=== PATIENT | female | born 1955 | race Caucasian/White ===

== ENCOUNTER → 2017-06-27 | Outpatient (CLI) | payer BC ==
[2015-11-07 15:02] VITALS: BP 143/78
[~2017-06-27] MED LIST: BONIVA150 MG PO; CALCIUM 1200 W/1 SGL PO; CLONAZEPAM0.5 MG PO; COLACE100 M1 PO; DECADRON 4MG TAB4 MG PO; FEMARA 2.5MG2.5 MG PO; FOSAMAX70 MG PO; LEXAPRO 10MG10 MG PO; MICARDIS40 MG PO; SIMVASTATIN40 M1 PO
== END ==
LOC: MAMMO 10:32 → RAD 14:30 → MAMMO 14:30
DX: Z12.31 Encounter for screening mammogram for malignant neoplasm of breast (principal)

== ENCOUNTER → 2017-06-27 | Outpatient (CLI) | payer BC ==
[2015-11-07 15:02] VITALS: BP 143/78
[2017-06-27 10:53] LABS: EOS # 0.2 (0.04-0.40); EOS % 2.5 % (1.0-5.0); HEMATOCRIT 47.7 % (37.0-47.0); HEMOGLOBIN 15.5 g/dL (12.5-16.0); LYMPH# 1.4 (1.50-4.00); MEAN CELL VOLUME 95 fl (78-100); MEAN CORPUSCULAR HEMOGLOBIN 31 pg (27-31); MEAN CORPUSCULAR HGB CONC 33 g/dL (33-37); MEAN PLATELET VOLUME 10.5 fl (7.4-10.4); MONO # 0.5 (0.20-0.80); NEU # 4.3 (1.40-6.50); PLATELET COUNT 271 K/mm3 (130-400); RED BLOOD COUNT 5.01 M/mm3 (4.10-5.30); RED CELL DISTRIBUTION WIDTH 13.1 % (11.5-14.5); WHITE BLOOD COUNT 6.4 K/mm3 (4.8-10.8)
[2017-06-27 11:17] LABS: ALBUMIN 4.3 g/dL (3.5-5.0); CALCIUM 9.9 mg/dL (8.4-10.2); POTASSIUM 4.4 mmol/L (3.6-5.0); TOTAL BILIRUBIN 0.6 mg/dL (0.2-1.3); TOTAL PROTEIN 7.6 g/dL (6.3-8.2)
== END ==
LOC: RAD 10:22 → LAB 10:22
PROVIDERS: Nurse Practitioner Family
DX: Z00.00 Encounter for general adult medical examination without abnormal findings (principal); E78.2 Mixed hyperlipidemia; I10 Essential (primary) hypertension; F41.1 Generalized anxiety disorder

== ENCOUNTER → 2017-12-01 | Outpatient (CLI) | payer BC ==
[2015-11-07 15:02] VITALS: BP 143/78
[~2017-12-01] MED LIST changes: +PERCOCET 325 MG1 TA2 PO
== END ==
LOC: RAD 16:58
DX: M51.37 Other intervertebral disc degeneration, lumbosacral region (principal)

== ENCOUNTER 2017-12-05 04:30 | Emergency (ER) | payer BC ==
[~2017-12-05] VITALS: Ht 157.5 cm; Wt 79.1 kg
[~2017-12-05 04:30] MED LIST changes: -PERCOCET 325 MG1 TA2 PO
[2017-12-05] MEDS ORDERED: PERCOCET 325 MG1 TA2 PO (06:08)
[2017-12-05 06:15] VITALS: BP 150/94
== END 2017-12-05 06:15 | disposition home or self-care (01) ==
LOC: ED 04:30
DX: M54.5 Low back pain (principal); M62.830 Muscle spasm of back; I10 Essential (primary) hypertension; Z85.3 Personal history of malignant neoplasm of breast; Z79.899 Other long term (current) drug therapy
CPT/HCPCS: J1885

== ENCOUNTER → 2017-12-11 | Outpatient (CLI) | payer BC ==
[2017-12-05 06:15] VITALS: BP 150/94
[~2017-12-11] MED LIST changes: +PERCOCET 325 MG1 TA2 PO
== END ==
LOC: RAD 10:19
DX: S32.010A Wedge compression fracture of first lumbar vertebra, initial encounter for closed fracture (principal); M51.26 Other intervertebral disc displacement, lumbar region; M48.8X7 Other specified spondylopathies, lumbosacral region; R60.0 Localized edema

== ENCOUNTER → 2018-02-21 | Outpatient (CLI) | payer BC | LOC: RAD 14:14 → MAMMO 14:30 → RAD 14:30 | DX: Z13.820 Encounter for screening for osteoporosis (principal); M81.0 Age-related osteoporosis without current pathological fracture ==

== ENCOUNTER 2018-03-09 14:57 | Emergency (ER) | payer BC ==
[~2018-03-09] VITALS: Wt 80.0 kg
[2018-03-09 15:54] LABS: EOS # 0.1 (0.04-0.40); EOS % 0.5 % (1.0-5.0); HEMATOCRIT 43.2 % (37.0-47.0); HEMOGLOBIN 13.8 g/dL (12.5-16.0); LYMPH# 1.5 (1.50-4.00); MEAN CELL VOLUME 97 fl (78-100); MEAN CORPUSCULAR HEMOGLOBIN 31 pg (27-31); MEAN CORPUSCULAR HGB CONC 32 g/dL (33-37); MEAN PLATELET VOLUME 10.5 fl (7.4-10.4); MONO # 1.2 (0.20-0.80); NEU # 8.2 (1.40-6.50); PLATELET COUNT 235 K/mm3 (130-400); RED BLOOD COUNT 4.46 M/mm3 (4.10-5.30); RED CELL DISTRIBUTION WIDTH 13.4 % (11.5-14.5)
[2018-03-09 16:04] LABS: PROTHROMBIN TIME 9.8 SECONDS (9.0-12.0)
[2018-03-09 16:17] LABS: CALCIUM 9.8 mg/dL (8.4-10.2); TOTAL BILIRUBIN 0.6 mg/dL (0.2-1.3); TOTAL PROTEIN 7.2 g/dL (6.3-8.2)
[2018-03-09 16:28] LABS: ALBUMIN 4.2 g/dL (3.5-5.0)
[2018-03-09] MEDS ORDERED: FLAGYL500 M1 PO (17:36)
[2018-03-09] MEDS ORDERED: ZOFRAN ODT4 MG PO (17:36)
[2018-03-09] MEDS ORDERED: CIPRO500 M1 PO (17:36)
[2018-03-09 18:15] VITALS: BP 128/77
[2018-03-09 18:19] LABS: URINE APPEARANCE CLEAR; URINE BILIRUBIN NEGATIVE (NEGATIVE); URINE BLOOD 50 ery/uL (NEGATIVE); URINE COLOR YELLOW; URINE GLUCOSE NEGATIVE (NEGATIVE); URINE KETONE NEGATIVE (NEGATIVE); URINE LEUKOCYTE ESTERASE NEGATIVE (NEGATIVE); URINE NITRATE NEGATIVE (NEGATIVE); URINE PROTEIN(semi-quant) NEGATIVE (NEGATIVE); URINE UROBILINOGEN NORMAL (NORMAL); URINE WBC 0-1 /hpf (0-3)
[2018-03-09] MEDS ORDERED: ESCITALOPRAM20 MG PO (18:34)
[2018-03-09] MEDS ORDERED: METOPROLOL SUC100 M1 PO (18:35)
[2018-03-09] MEDS ORDERED: HYDROCHLOROTHIA1 T14 PO (18:35)
== END 2018-03-09 17:58 | disposition home or self-care (01) ==
LOC: ED 14:57
PROVIDERS: Physician Assistant
DX: K57.32 Diverticulitis of large intestine without perforation or abscess without bleeding (principal); G43.909 Migraine, unspecified, not intractable, without status migrainosus; I10 Essential (primary) hypertension; Z85.3 Personal history of malignant neoplasm of breast; Z79.899 Other long term (current) drug therapy; Z88.5 Allergy status to narcotic agent
CPT/HCPCS: J1885; J2405; J3010; J7030; Q9967

== ENCOUNTER → 2018-07-09 | Outpatient (CLI) | payer BC ==
[~2018-07-09] MED LIST changes: +CIPRO500 M1 PO; +ESCITALOPRAM20 MG PO; +FLAGYL500 M1 PO; +HYDROCHLOROTHIA1 T14 PO; +METOPROLOL SUC100 M1 PO; +ZOFRAN ODT4 MG PO
[2018-07-09 09:18] LABS: EOS # 0.2 (0.04-0.40); EOS % 3.9 % (1.0-5.0); HEMATOCRIT 45.8 % (37.0-47.0); HEMOGLOBIN 14.8 g/dL (12.5-16.0); LYMPH# 1.3 (1.50-4.00); MEAN CELL VOLUME 94 fl (78-100); MEAN CORPUSCULAR HEMOGLOBIN 31 pg (27-31); MEAN CORPUSCULAR HGB CONC 32 g/dL (33-37); MEAN PLATELET VOLUME 10.3 fl (7.4-10.4); MONO # 0.4 (0.20-0.80); NEU # 2.3 (1.40-6.50); PLATELET COUNT 246 K/mm3 (130-400); RED BLOOD COUNT 4.86 M/mm3 (4.10-5.30); RED CELL DISTRIBUTION WIDTH 12.9 % (11.5-14.5); WHITE BLOOD COUNT 4.2 K/mm3 (4.8-10.8)
[2018-07-09 09:47] LABS: ALBUMIN 4.2 g/dL (3.5-5.0); CALCIUM 9.5 mg/dL (8.4-10.2); TOTAL BILIRUBIN 0.6 mg/dL (0.2-1.3); TOTAL PROTEIN 7.3 g/dL (6.3-8.2)
== END ==
LOC: LAB 09:06
PROVIDERS: Physician Assistant
DX: Z00.00 Encounter for general adult medical examination without abnormal findings (principal); Z12.39 Encounter for other screening for malignant neoplasm of breast; C50.919 Malignant neoplasm of unspecified site of unspecified female breast; I10 Essential (primary) hypertension; M81.0 Age-related osteoporosis without current pathological fracture; G25.81 Restless legs syndrome; K22.4 Dyskinesia of esophagus; R13.10 Dysphagia, unspecified

== ENCOUNTER → 2018-07-17 | Outpatient (CLI) | payer BC | LOC: MAMMO 07-10 16:00 | DX: Z12.31 Encounter for screening mammogram for malignant neoplasm of breast (principal) ==

== ENCOUNTER → 2018-08-16 | Outpatient (CLI) | payer BC ==
[2018-08-19 07:27] LABS: ALBUMIN 4.2 g/dL (3.5-5.0); CALCIUM 10.1 mg/dL (8.4-10.2); TOTAL BILIRUBIN 0.4 mg/dL (0.2-1.3); TOTAL PROTEIN 7.6 g/dL (6.3-8.2)
[2018-08-19 08:17] LABS: HEMATOCRIT 45.6 % (37.0-47.0); HEMOGLOBIN 14.8 g/dL (12.5-16.0); MEAN PLATELET VOLUME 11.4 fl (7.4-10.4); RED BLOOD COUNT 4.87 M/mm3 (4.10-5.30); RED CELL DISTRIBUTION WIDTH 13.1 % (11.5-14.5); WHITE BLOOD COUNT 5.6 K/mm3 (4.8-10.8)
== END ==
LOC: AMSURD 12:04
PROVIDERS: Nurse Practitioner
DX: G43.909 Migraine, unspecified, not intractable, without status migrainosus (principal); R11.0 Nausea
CPT/HCPCS: J1200; J1885; J2060; J2550; J7030

== ENCOUNTER → 2019-08-06 | Outpatient (CLI) | payer BC ==
[2019-01-22 16:06] VITALS: BP 112/54
[~2019-08-06] MED LIST changes: +PRILOSEC 20MG20 MG PO
== END ==
LOC: MAMMO 11:09
DX: Z12.31 Encounter for screening mammogram for malignant neoplasm of breast (principal)

== ENCOUNTER 2020-05-16 13:56 | Emergency (ER) | payer MEDICARE ==
[~2020-05-16] VITALS: Ht 154.9 cm; Wt 78.2 kg
[2020-05-16] MEDS ORDERED: MIRAPEX0.125 M1 PO (14:12)
[2020-05-16 15:02] LABS: EOS # 0.2 (0.04-0.40); EOS % 3.6 % (1.0-5.0); HEMOGLOBIN 14.8 g/dL (12.5-16.0); LYMPH# 1.6 (1.50-4.00); MEAN CELL VOLUME 95 fl (78-100); MEAN CORPUSCULAR HEMOGLOBIN 31 pg (27-31); MEAN CORPUSCULAR HGB CONC 32 g/dL (33-37); MEAN PLATELET VOLUME 9.8 fl (7.4-10.4); MONO # 0.6 (0.20-0.80); NEU # 3.3 (1.40-6.50); PLATELET COUNT 260 K/mm3 (130-400); RED BLOOD COUNT 4.85 M/mm3 (4.10-5.30); RED CELL DISTRIBUTION WIDTH 12.8 % (11.5-14.5); WHITE BLOOD COUNT 5.8 K/mm3 (4.8-10.8)
[2020-05-16 15:09] LABS: ALBUMIN 4.2 g/dL (3.4-4.8); POTASSIUM 4.2 mmol/L (3.5-5.1)
[2020-05-16 15:10] LABS: CALCIUM 10.1 mg/dL (8.3-10.5)
[2020-05-16 15:12] LABS: TOTAL PROTEIN 7.2 g/dL (6.2-8.1)
[2020-05-16 15:13] LABS: TOTAL BILIRUBIN 0.3 mg/dL (0.2-1.2)
[2020-05-16 16:45] VITALS: BP 138/85
== END 2020-05-16 16:50 | disposition home or self-care (01) ==
LOC: ED 13:56
PROVIDERS: Family Medicine
DX: R07.1 Chest pain on breathing (principal); I10 Essential (primary) hypertension; E78.5 Hyperlipidemia, unspecified; F41.9 Anxiety disorder, unspecified; Z90.49 Acquired absence of other specified parts of digestive tract; Z88.6 Allergy status to analgesic agent
CPT/HCPCS: J1885

== ENCOUNTER → 2020-09-11 | Outpatient (CLI) | payer MEDICARE ==
[~2020-09-11] MED LIST changes: +CALCIUM 600 PLU1 TAB PO; +HYDROCHLOROTH12.5 M1 PO; -HYDROCHLOROTHIA1 T14 PO; +LISINOPRIL10 MG PO; +MIRAPEX0.125 M1 PO; +MIRAPEX0.5 MG PO; +PANTOPRAZOLE SO40 MG PO; +VITAMIN D325 MC2 PO
[2020-09-11 12:15] LABS: EOS # 0.2 (0.04-0.40); EOS % 4.2 % (1.0-5.0); HEMOGLOBIN 14.9 g/dL (12.5-16.0); LYMPH# 1.1 (1.50-4.00); MEAN CELL VOLUME 96 fl (78-100); MEAN CORPUSCULAR HEMOGLOBIN 30 pg (27-31); MEAN CORPUSCULAR HGB CONC 32 g/dL (33-37); MEAN PLATELET VOLUME 10.3 fl (7.4-10.4); MONO # 0.5 (0.20-0.80); NEU # 3.4 (1.40-6.50); PLATELET COUNT 263 K/mm3 (130-400); RED BLOOD COUNT 4.92 M/mm3 (4.10-5.30); RED CELL DISTRIBUTION WIDTH 13.2 % (11.5-14.5); WHITE BLOOD COUNT 5.3 K/mm3 (4.8-10.8)
[2020-09-11 12:17] LABS: ALBUMIN 4.3 g/dL (3.4-4.8); POTASSIUM 4.2 mmol/L (3.5-5.1)
[2020-09-11 12:18] LABS: CALCIUM 9.6 mg/dL (8.3-10.5)
[2020-09-11 12:19] LABS: TOTAL PROTEIN 7.3 g/dL (6.2-8.1)
[2020-09-11 12:21] LABS: TOTAL BILIRUBIN 0.4 mg/dL (0.2-1.2)
== END ==
LOC: RAD 11:36
PROVIDERS: Physician Assistant
DX: M19.011 Primary osteoarthritis, right shoulder (principal); M48.061 Spinal stenosis, lumbar region without neurogenic claudication; M48.07 Spinal stenosis, lumbosacral region; Z98.1 Arthrodesis status

== ENCOUNTER → 2021-02-08 | Outpatient (CLI) | payer MEDICARE | LOC: MAMMO 07:16 | DX: N63.12 Unspecified lump in the right breast, upper inner quadrant (principal); Z85.3 Personal history of malignant neoplasm of breast ==

== ENCOUNTER 2021-03-23 15:41 | Emergency (ER) | payer MEDICARE ==
[~2021-03-23] VITALS: Ht 154.9 cm; Wt 80.9 kg
[~2021-03-23 15:41] MED LIST changes: -CALCIUM 600 PLU1 TAB PO; -HYDROCHLOROTH12.5 M1 PO; -MIRAPEX0.125 M1 PO; -PANTOPRAZOLE SO40 MG PO; -VITAMIN D325 MC2 PO
[2021-03-23] MEDS ORDERED: CALCIUM 600 PLU1 TAB PO (17:26)
[2021-03-23] MEDS ORDERED: VITAMIN D325 MC2 PO (17:29)
[2021-03-23] MEDS ORDERED: HYDROCHLOROTH12.5 M1 PO (17:30)
[2021-03-23] MEDS ORDERED: PANTOPRAZOLE SO40 MG PO (17:31)
[2021-03-23 18:09] VITALS: BP 150/87
== END 2021-03-23 18:10 | disposition home or self-care (01) ==
LOC: ED 15:41
DX: S39.011A Strain of muscle, fascia and tendon of abdomen, initial encounter (principal); I10 Essential (primary) hypertension; Z79.899 Other long term (current) drug therapy; X50.9XXA Other and unspecified overexertion or strenuous movements or postures, initial encounter
CPT/HCPCS: J1885

== ENCOUNTER 2021-05-03 21:40 | Emergency (ER) | payer MEDICARE ==
[~2021-05-03] VITALS: Ht 154.9 cm; Wt 81.8 kg
[~2021-05-03 21:40] MED LIST changes: +CALCIUM 600 PLU1 TAB PO; +HYDROCHLOROTH12.5 M1 PO; +PANTOPRAZOLE SO40 MG PO; +VITAMIN D325 MC2 PO
[2021-05-03 21:48] VITALS: BP 152/97
[2021-05-03] MEDS ORDERED: MIRAPEX0.125 M1 PO (21:57)
== END 2021-05-03 22:11 | disposition left against medical advice (07) ==
LOC: ED 21:40
DX: R07.89 Other chest pain (principal); I10 Essential (primary) hypertension; Z79.899 Other long term (current) drug therapy

== ENCOUNTER → 2021-06-30 | Outpatient (CLI) | payer MEDICARE ==
[~2021-06-30] MED LIST changes: +MIRAPEX0.125 M1 PO
[2021-06-30 12:42] LABS: BASO # 0.04 K/mm3 (0.02-0.10); EOS # 0.18 K/mm3 (0.04-0.40); EOS % 2.6 % (1.0-5.0); HEMATOCRIT 45.7 % (37.0-47.0); HEMOGLOBIN 14.5 g/dL (12.5-16.0); MEAN CELL VOLUME 97 fl (78-100); MEAN CORPUSCULAR HEMOGLOBIN 31 pg (27-31); MEAN CORPUSCULAR HGB CONC 32 g/dL (33-37); MEAN PLATELET VOLUME 9.7 fl (7.4-10.4); NEU # 4.79 K/mm3 (1.40-6.50); PLATELET COUNT 248 K/mm3 (130-400); RED BLOOD COUNT 4.73 M/mm3 (4.10-5.30); RED CELL DISTRIBUTION WIDTH 12.9 % (11.5-14.5); WHITE BLOOD COUNT 6.8 K/mm3 (4.8-10.8)
[2021-06-30 12:51] LABS: ALBUMIN 4.3 g/dL (3.4-4.8)
[2021-06-30 12:52] LABS: POTASSIUM 4.3 mmol/L (3.5-5.1)
[2021-06-30 12:53] LABS: CALCIUM 10.1 mg/dL (8.3-10.5)
[2021-06-30 12:54] LABS: TOTAL PROTEIN 7.5 g/dL (6.2-8.1)
[2021-06-30 12:56] LABS: TOTAL BILIRUBIN 0.4 mg/dL (0.2-1.2)
== END ==
LOC: LAB 12:23
PROVIDERS: Physician Assistant
DX: R42 Dizziness and giddiness (principal)

== ENCOUNTER → 2021-09-23 | Day surgery (SDC) | payer MEDICARE | LOC: MSO 08:04 | DX: K21.9 Gastro-esophageal reflux disease without esophagitis (principal); K22.2 Esophageal obstruction; K64.8 Other hemorrhoids; D12.3 Benign neoplasm of transverse colon; K57.30 Diverticulosis of large intestine without perforation or abscess without bleeding; Z79.899 Other long term (current) drug therapy; Z87.19 Personal history of other diseases of the digestive system; Z80.0 Family history of malignant neoplasm of digestive organs | CPT/HCPCS: 00813; C1769; J2704; J7120 ==

== ENCOUNTER → 2021-09-24 | Outpatient (CLI) | payer MEDICARE ==
[2021-09-24 11:22] LABS: BASO # 0.03 K/mm3 (0.02-0.10); EOS # 0.13 K/mm3 (0.04-0.40); EOS % 2.8 % (1.0-5.0); HEMATOCRIT 45.2 % (37.0-47.0); HEMOGLOBIN 14.5 g/dL (12.5-16.0); LYMPH# 1.05 K/mm3 (1.50-4.00); MEAN CELL VOLUME 96 fl (78-100); MEAN CORPUSCULAR HEMOGLOBIN 31 pg (27-31); MEAN CORPUSCULAR HGB CONC 32 g/dL (33-37); MEAN PLATELET VOLUME 9.8 fl (7.4-10.4); MONO # 0.36 K/mm3 (0.20-0.80); NEU # 3.07 K/mm3 (1.40-6.50); PLATELET COUNT 231 K/mm3 (130-400); RED CELL DISTRIBUTION WIDTH 13.1 % (11.5-14.5); WHITE BLOOD COUNT 4.7 K/mm3 (4.8-10.8)
[2021-09-24 12:52] LABS: ALBUMIN 4.2 g/dL (3.4-4.8); POTASSIUM 4.6 mmol/L (3.5-5.1)
[2021-09-24 12:53] LABS: CALCIUM 9.8 mg/dL (8.3-10.5)
[2021-09-24 12:55] LABS: TOTAL PROTEIN 7.2 g/dL (6.2-8.1)
[2021-09-24 12:57] LABS: TOTAL BILIRUBIN 0.6 mg/dL (0.2-1.2)
== END ==
LOC: RAD 11:01
PROVIDERS: Physician Assistant
DX: M25.511 Pain in right shoulder (principal); G89.29 Other chronic pain

== ENCOUNTER 2021-12-10 10:00 | Outpatient (RCR) | payer MEDICARE ==
[2021-12-16] MEDS ORDERED: LISINOPRIL20 MG PO (13:08)
[2021-12-16] MEDS ORDERED: ZOFRAN ODT4 MG PO (14:31)
[2021-12-16] MEDS ORDERED: PHENERGAN 25 TA25 MG PO (15:00)
== END 2021-12-16 | disposition home or self-care (01) ==
LOC: PT
DX: M25.511 Pain in right shoulder (principal)

== ENCOUNTER 2021-12-16 12:06 | Emergency (ER) | payer MEDICARE ==
[~2021-12-16 12:06] MED LIST changes: -LISINOPRIL20 MG PO; -PHENERGAN 25 TA25 MG PO
[2021-12-16 12:51] LABS: BASO # 0.02 K/mm3 (0.02-0.10); EOS # 0.08 K/mm3 (0.04-0.40); EOS % 1.1 % (1.0-5.0); HEMATOCRIT 42.3 % (37.0-47.0); HEMOGLOBIN 13.8 g/dL (12.5-16.0); LYMPH# 0.85 K/mm3 (1.50-4.00); MEAN CELL VOLUME 96 fl (78-100); MEAN CORPUSCULAR HEMOGLOBIN 31 pg (27-31); MEAN CORPUSCULAR HGB CONC 33 g/dL (33-37); MEAN PLATELET VOLUME 10.2 fl (7.4-10.4); MONO # 0.52 K/mm3 (0.20-0.80); NEU # 5.71 K/mm3 (1.40-6.50); PLATELET COUNT 199 K/mm3 (130-400); RED BLOOD COUNT 4.42 M/mm3 (4.10-5.30); RED CELL DISTRIBUTION WIDTH 12.9 % (11.5-14.5); WHITE BLOOD COUNT 7.2 K/mm3 (4.8-10.8)
[2021-12-16 12:59] LABS: POTASSIUM 3.4 mmol/L (3.5-5.1)
[2021-12-16 13:00] LABS: ALBUMIN 4.1 g/dL (3.4-4.8); SODIUM 141 mmol/L (136-145)
[2021-12-16 13:01] LABS: CALCIUM 9.5 mg/dL (8.3-10.5)
[2021-12-16 13:03] LABS: GLUCOSE 114 mg/dL (65-105); TOTAL PROTEIN 6.9 g/dL (6.2-8.1)
[2021-12-16 13:04] LABS: CARBON DIOXIDE 26 mmol/L (23-31); TOTAL BILIRUBIN 0.6 mg/dL (0.2-1.2)
[2021-12-16 13:07] LABS: AST-SGOT 19 U/L (5-34)
[2021-12-16] MEDS ORDERED: LISINOPRIL20 MG PO (13:08)
[2021-12-16 13:10] LABS: ALT/SGPT 17 U/L (0-55)
[2021-12-16 13:12] LABS: LIPASE 29 U/L (8-78)
[2021-12-16 13:20] LABS: TROPONIN-I < 0.030 ng/mL (<0.030)
[2021-12-16] MEDS ORDERED: ZOFRAN ODT4 MG PO (14:31)
[2021-12-16] MEDS ORDERED: PHENERGAN 25 TA25 MG PO (15:00)
[2021-12-16 15:14] VITALS: BP 133/73
[2021-12-16 16:26] LABS: URINE APPEARANCE CLEAR; URINE COLOR YELLOW; URINE PROTEIN(semi-quant) TRACE (NEGATIVE)
[2021-12-16 16:27] LABS: URINE BILIRUBIN NEGATIVE (NEGATIVE); URINE BLOOD 50 ery/uL (NEGATIVE); URINE GLUCOSE NEGATIVE (NEGATIVE); URINE KETONE NEGATIVE (NEGATIVE); URINE LEUKOCYTE ESTERASE NEGATIVE (NEGATIVE); URINE MUCUS PRESENT (NOT PRESENT); URINE NITRATE NEGATIVE (NEGATIVE); URINE UROBILINOGEN NORMAL (NORMAL); URINE WBC 0-1 /hpf (0-3)
== END 2021-12-16 15:12 | disposition home or self-care (01) ==
LOC: ED 12:06
PROVIDERS: Nurse Practitioner
DX: K52.9 Noninfective gastroenteritis and colitis, unspecified (principal); Z90.49 Acquired absence of other specified parts of digestive tract; Z28.310 Unvaccinated for COVID-19
CPT/HCPCS: J2405; J2550; J3010; J7030; Q9967

== ENCOUNTER → 2021-12-16 | Outpatient (CLI) | payer MEDICARE ==
[~2021-12-16] MED LIST changes: +LISINOPRIL20 MG PO; +PHENERGAN 25 TA25 MG PO
== END ==
LOC: LAB 07:30
DX: Z20.822 Contact with and (suspected) exposure to COVID-19 (principal)

== ENCOUNTER 2021-12-17 13:33 | Outpatient (RCR) | payer MEDICARE ==
[~2021-12-17 13:33] MED LIST changes: +LISINOPRIL20 MG PO; +PHENERGAN 25 TA25 MG PO
== END 2022-01-16 | disposition home or self-care (01) ==
LOC: PT
DX: M25.511 Pain in right shoulder (principal)

== ENCOUNTER → 2022-02-16 | Outpatient (CLI) | payer MEDICARE | LOC: MAMMO 10:06 | DX: Z12.31 Encounter for screening mammogram for malignant neoplasm of breast (principal) ==

== ENCOUNTER → 2022-09-01 | Outpatient (CLI) | payer MEDICARE ==
[2022-09-01 17:15] LABS: BASO # 0.05 K/mm3 (0.02-0.10); EOS # 0.28 K/mm3 (0.04-0.40); EOS % 4.6 % (1.0-5.0); HEMATOCRIT 42.4 % (37.0-47.0); HEMOGLOBIN 13.6 g/dL (12.5-16.0); LYMPH# 1.87 K/mm3 (1.50-4.00); MEAN CELL VOLUME 96 fl (78-100); MEAN CORPUSCULAR HEMOGLOBIN 31 pg (27-31); MEAN CORPUSCULAR HGB CONC 32 g/dL (33-37); MEAN PLATELET VOLUME 9.3 fl (7.4-10.4); MONO # 0.69 K/mm3 (0.20-0.80); NEU # 3.25 K/mm3 (1.40-6.50); PLATELET COUNT 252 K/mm3 (130-400); RED BLOOD COUNT 4.42 M/mm3 (4.10-5.30); RED CELL DISTRIBUTION WIDTH 12.6 % (11.5-14.5); WHITE BLOOD COUNT 6.2 K/mm3 (4.8-10.8)
[2022-09-01 17:26] LABS: ALBUMIN 4.2 g/dL (3.4-4.8)
[2022-09-01 17:27] LABS: POTASSIUM 4.1 mmol/L (3.5-5.1)
[2022-09-01 17:28] LABS: CALCIUM 9.8 mg/dL (8.3-10.5)
[2022-09-01 17:29] LABS: TOTAL PROTEIN 7.1 g/dL (6.2-8.1)
[2022-09-01 17:31] LABS: TOTAL BILIRUBIN 0.3 mg/dL (0.2-1.2)
[2022-09-01 17:33] LABS: D-DIMER 0.31 mg/L FEU (0.15-0.50)
== END ==
LOC: LAB 17:05
PROVIDERS: Nurse Practitioner
DX: R22.43 Localized swelling, mass and lump, lower limb, bilateral (principal)

== ENCOUNTER 2023-02-24 18:40 | Emergency (ER) | payer MEDICARE ==
[~2023-02-24] VITALS: Ht 157.5 cm; Wt 82.2 kg
[~2023-02-24 18:40] MED LIST changes: +CARVEDILOL25 MG PO; +GABAPENTIN100 MG PO; +LOSARTAN POTAS100 MG PO; +PREDNISONE20 M1 PO; +ROPINIROLE HYDRO2 MG PO; +TRAMADOL 50 MG TAB PO; +VALACYCLOVIR1 GM PO
[2023-02-24] MEDS ORDERED: CLONIDINE HYDR0.1 MG PO (19:12)
[2023-02-24 19:26] LABS: POTASSIUM 3.5 mmol/L (3.5-5.1); SODIUM 143 mmol/L (136-145)
[2023-02-24 19:27] LABS: CALCIUM 9.4 mg/dL (8.3-10.5); GLUCOSE 115 mg/dL (65-105)
[2023-02-24 19:29] LABS: CARBON DIOXIDE 26 mmol/L (23-31)
[2023-02-24 19:40] LABS: TROPONIN-I < 0.030 ng/mL (<0.030)
[2023-02-24 20:55] VITALS: BP 145/80
== END 2023-02-24 21:05 | disposition home or self-care (01) ==
LOC: ED 18:40
PROVIDERS: Family Medicine
DX: I10 Essential (primary) hypertension (principal); F41.9 Anxiety disorder, unspecified

== ENCOUNTER 2023-04-23 10:37 | Emergency (ER) | payer MEDICARE ==
[~2023-04-23] VITALS: Ht 154.9 cm; Wt 78.2 kg
[~2023-04-23 10:37] MED LIST changes: +CANDICIDAL CAP1 EACH PO; +CLONIDINE HYDR0.1 MG PO; +FISH OIL 1,0001 EAC1 PO; +KETOROLAC10 MG PO; +VITAMIN K100 MC1 PO
[2023-04-23] MEDS ORDERED: NEURONTIN300 MG/CAP (10:46)
[2023-04-23] MEDS ORDERED: ROPINIROLE HCL1 MG PO (10:46)
[2023-04-23 11:40] VITALS: BP 140/90
== END 2023-04-23 11:40 | disposition home or self-care (01) ==
LOC: ED 10:37
DX: I10 Essential (primary) hypertension (principal); F41.9 Anxiety disorder, unspecified; J06.9 Acute upper respiratory infection, unspecified; E66.9 Obesity, unspecified; Z68.32 Body mass index [BMI] 32.0-32.9, adult

== ENCOUNTER → 2023-06-15 | Outpatient (CLI) | payer MEDICARE ==
[~2023-06-15] MED LIST changes: +NEURONTIN300 MG/CAP; +ROPINIROLE HCL1 MG PO
[2023-06-15 12:55] LABS: BASO # 0.01 K/mm3 (0.02-0.10); EOS # 0.13 K/mm3 (0.04-0.40); EOS % 2.1 % (1.0-5.0); HEMATOCRIT 41.7 % (37.0-47.0); HEMOGLOBIN 13.8 g/dL (12.5-16.0); LYMPH# 1.15 K/mm3 (1.50-4.00); MEAN CELL VOLUME 93 fl (78-100); MEAN CORPUSCULAR HEMOGLOBIN 31 pg (27-31); MEAN CORPUSCULAR HGB CONC 33 g/dL (33-37); MEAN PLATELET VOLUME 10.1 fl (7.4-10.4); MONO # 0.48 K/mm3 (0.20-0.80); NEU # 4.39 K/mm3 (1.40-6.50); PLATELET COUNT 256 K/mm3 (130-400); RED BLOOD COUNT 4.47 M/mm3 (4.10-5.30); RED CELL DISTRIBUTION WIDTH 12.8 % (11.5-14.5); WHITE BLOOD COUNT 6.2 K/mm3 (4.8-10.8)
[2023-06-15 13:06] LABS: ALBUMIN 4.4 g/dL (3.4-4.8)
[2023-06-15 13:09] LABS: TOTAL PROTEIN 7.6 g/dL (6.2-8.1)
[2023-06-15 13:11] LABS: TOTAL BILIRUBIN 0.6 mg/dL (0.2-1.2)
== END ==
LOC: LAB 12:26
PROVIDERS: Nurse Practitioner Family
DX: M79.89 Other specified soft tissue disorders (principal)

== ENCOUNTER → 2023-06-27 | Outpatient (CLI) | payer MEDICARE ==
[2023-06-27 13:56] LABS: ALBUMIN 4.5 g/dL (3.4-4.8)
[2023-06-27 13:58] LABS: CALCIUM 9.9 mg/dL (8.3-10.5)
[2023-06-27 13:59] LABS: TOTAL PROTEIN 7.5 g/dL (6.2-8.1)
[2023-06-27 14:01] LABS: TOTAL BILIRUBIN 0.7 mg/dL (0.2-1.2)
== END ==
LOC: LAB 13:28
PROVIDERS: Physician Assistant
DX: I50.9 Heart failure, unspecified (principal); R60.0 Localized edema

== ENCOUNTER → 2023-07-04 | Outpatient (CLI) | payer MEDICARE ==
[2023-07-04 10:20] LABS: ALBUMIN 4.3 g/dL (3.4-4.8)
[2023-07-04 10:21] LABS: CALCIUM 9.7 mg/dL (8.3-10.5)
[2023-07-04 10:22] LABS: TOTAL PROTEIN 7.1 g/dL (6.2-8.1)
[2023-07-04 10:24] LABS: TOTAL BILIRUBIN 0.7 mg/dL (0.2-1.2)
== END ==
LOC: LAB 09:58
PROVIDERS: Physician Assistant
DX: R60.0 Localized edema (principal)

== ENCOUNTER → 2023-07-12 | Outpatient (CLI) | payer MEDICARE ==
[2023-07-12 08:48] LABS: MAGNESIUM 1.92 mg/dL (1.60-2.60)
[2023-07-12 17:28] LABS: FOLATE (FOLIC ACID) 14.3 ng/mL (2.0-20.0)
== END ==
LOC: LAB 08:13
PROVIDERS: Nurse Practitioner
DX: M81.0 Age-related osteoporosis without current pathological fracture (principal); G25.81 Restless legs syndrome; D64.9 Anemia, unspecified; R20.2 Paresthesia of skin

== ENCOUNTER → 2023-09-09 | Outpatient (CLI) | payer MEDICARE | LOC: RAD 17:02 | DX: M79.671 Pain in right foot (principal) ==

== ENCOUNTER → 2023-09-27 | Outpatient (CLI) | payer MEDICARE ==
[2023-09-27 14:33] LABS: BASO # 0.04 K/mm3 (0.02-0.10); EOS # 0.23 K/mm3 (0.04-0.40); EOS % 3.8 % (1.0-5.0); HEMATOCRIT 42.9 % (37.0-47.0); HEMOGLOBIN 13.8 g/dL (12.5-16.0); LYMPH# 1.72 K/mm3 (1.50-4.00); MEAN CELL VOLUME 95 fl (78-100); MEAN CORPUSCULAR HEMOGLOBIN 30 pg (27-31); MEAN CORPUSCULAR HGB CONC 32 g/dL (33-37); MEAN PLATELET VOLUME 10.1 fl (7.4-10.4); MONO # 0.47 K/mm3 (0.20-0.80); NEU # 3.64 K/mm3 (1.40-6.50); PLATELET COUNT 235 K/mm3 (130-400); RED BLOOD COUNT 4.54 M/mm3 (4.10-5.30); RED CELL DISTRIBUTION WIDTH 12.8 % (11.5-14.5); WHITE BLOOD COUNT 6.1 K/mm3 (4.8-10.8)
[2023-09-27 14:41] LABS: ALBUMIN 4.6 g/dL (3.4-4.8)
[2023-09-27 14:42] LABS: CALCIUM 10.8 mg/dL (8.3-10.5)
[2023-09-27 14:44] LABS: TOTAL PROTEIN 7.3 g/dL (6.2-8.1)
[2023-09-27 14:46] LABS: TOTAL BILIRUBIN 0.5 mg/dL (0.2-1.2)
[2023-09-28 17:11] LABS: ANA SCREEN with REFLEX Negative (Negative)
== END ==
LOC: LAB 14:08
PROVIDERS: Physician Assistant
DX: Z13.29 Encounter for screening for other suspected endocrine disorder (principal); E78.5 Hyperlipidemia, unspecified; R73.9 Hyperglycemia, unspecified; E79.0 Hyperuricemia without signs of inflammatory arthritis and tophaceous disease; M25.50 Pain in unspecified joint

== ENCOUNTER 2023-10-08 12:37 | Emergency (ER) | payer MEDICARE ==
[~2023-10-08] VITALS: Ht 154.9 cm; Wt 81.8 kg
[~2023-10-08 12:37] MED LIST changes: +ATORVASTATIN CA20 MG PO; +CYCLOBENZAPRINE10 M1 PO; +ESCITALOPRAM5 MG PO; +INDOMETHACIN50 M2 PO; +POTASSIUM CHLO10 ME6 PO; +ROXICODONE 55 MG/TAB PO; +TORSEMIDE10 M1 PO
[2023-10-08 13:18] LABS: BASO # 0.03 K/mm3 (0.02-0.10); EOS # 0.25 K/mm3 (0.04-0.40); EOS % 5.2 % (1.0-5.0); HEMATOCRIT 39.4 % (37.0-47.0); LYMPH# 1.05 K/mm3 (1.50-4.00); MEAN CELL VOLUME 95 fl (78-100); MEAN CORPUSCULAR HEMOGLOBIN 31 pg (27-31); MEAN CORPUSCULAR HGB CONC 33 g/dL (33-37); MEAN PLATELET VOLUME 10.2 fl (7.4-10.4); NEU # 2.94 K/mm3 (1.40-6.50); PLATELET COUNT 211 K/mm3 (130-400); RED BLOOD COUNT 4.17 M/mm3 (4.10-5.30); RED CELL DISTRIBUTION WIDTH 12.9 % (11.5-14.5); WHITE BLOOD COUNT 4.8 K/mm3 (4.8-10.8)
[2023-10-08 13:26] LABS: ALBUMIN 4.1 g/dL (3.4-4.8)
[2023-10-08 13:28] LABS: CALCIUM 9.4 mg/dL (8.3-10.5)
[2023-10-08 13:29] LABS: TOTAL PROTEIN 6.7 g/dL (6.2-8.1)
[2023-10-08 13:31] LABS: TOTAL BILIRUBIN 0.4 mg/dL (0.2-1.2)
[2023-10-08] MEDS ORDERED: hydrALAZINE 20 MG/ML 1 ML VIAL IV ONE (14:00)
[2023-10-08 14:03] LABS: URINE APPEARANCE CLEAR (CLEAR); URINE BILIRUBIN NEGATIVE (NEGATIVE); URINE BLOOD NEGATIVE (NEGATIVE); URINE COLOR YELLOW (YELLOW); URINE GLUCOSE NEGATIVE (NEGATIVE); URINE KETONE NEGATIVE (NEGATIVE); URINE LEUKOCYTE ESTERASE TRACE (NEGATIVE); URINE NITRATE NEGATIVE (NEGATIVE); URINE PROTEIN(semi-quant) NEGATIVE (NEGATIVE); URINE WBC 0-1 /hpf (0-3)
[2023-10-08 14:41] VITALS: BP 138/76
== END 2023-10-08 14:45 | disposition home or self-care (01) ==
LOC: ED 12:37
PROVIDERS: Physician Assistant
DX: I16.0 Hypertensive urgency (principal); T50.905A Adverse effect of unspecified drugs, medicaments and biological substances, initial encounter; E66.9 Obesity, unspecified; Z68.34 Body mass index [BMI] 34.0-34.9, adult; Z79.899 Other long term (current) drug therapy
CPT/HCPCS: J0360

== ENCOUNTER 2023-10-13 22:16 | Emergency (ER) | payer MEDICARE ==
[2023-10-13 22:55] LABS: CALCIUM 9.5 mg/dL (8.3-10.5)
[2023-10-13] MEDS ORDERED: hydrALAZINE 20 MG/ML 1 ML VIAL IV ONE (23:00)
[2023-10-14] VITALS: BP 151/78
== END 2023-10-14 | disposition home or self-care (01) ==
LOC: ED 22:16
PROVIDERS: Family Medicine
DX: I10 Essential (primary) hypertension (principal); E66.9 Obesity, unspecified
CPT/HCPCS: J0360

== ENCOUNTER → 2023-12-08 | Outpatient (CLI) | payer MEDICARE ==
[~2023-12-08] VITALS: Ht 154.9 cm; Wt 77.1 kg
[~2023-12-08] MED LIST changes: +Regadenoson 0.08 MG/ML 5 ML VIAL IV SCH
== END ==
LOC: CARDREHAB 08:00
DX: M54.2 Cervicalgia (principal)
CPT/HCPCS: A9500; J2785

== ENCOUNTER → 2024-01-15 | Outpatient (CLI) | payer MEDICARE ==
[~2024-01-15] MED LIST changes: -Regadenoson 0.08 MG/ML 5 ML VIAL IV SCH
== END ==
LOC: RAD 12:20
DX: M51.37 Other intervertebral disc degeneration, lumbosacral region (principal); M48.56XD Collapsed vertebra, not elsewhere classified, lumbar region, subsequent encounter for fracture with routine healing

== ENCOUNTER → 2024-03-14 | Outpatient (CLI) | payer MEDICARE | LOC: MAMMO 10:28 | DX: Z12.31 Encounter for screening mammogram for malignant neoplasm of breast (principal) ==

== ENCOUNTER 2024-03-19 09:56 | Outpatient (RCR) | payer MEDICARE | END 2024-04-18 | disposition home or self-care (01) | LOC: PT | DX: M76.822 Posterior tibial tendinitis, left leg (principal); Q74.2 Other congenital malformations of lower limb(s), including pelvic girdle; M62.462 Contracture of muscle, left lower leg; G57.52 Tarsal tunnel syndrome, left lower limb; G57.61 Lesion of plantar nerve, right lower limb; R26.9 Unspecified abnormalities of gait and mobility ==

== ENCOUNTER 2024-04-08 11:21 | Emergency (ER) | payer MEDICARE ==
[~2024-04-08] VITALS: Ht 154.9 cm; Wt 79.5 kg
[2024-04-08] MEDS ORDERED: Ketorolac 30 MG/ML VIAL IV ONE (11:45)
[2024-04-08] MEDS ORDERED: Dextrose/Magnesium Sulfate 100 ML IV ONE (11:45)
[2024-04-08] MEDS ORDERED: NS 1,000 ML IV SCH (12:00)
[2024-04-08 12:01] VITALS: BP 142/75
== END 2024-04-08 12:49 | disposition home or self-care (01) ==
LOC: ED 11:21
DX: G43.009 Migraine without aura, not intractable, without status migrainosus (principal)
CPT/HCPCS: J1885; J2765; J3475; J7030

== ENCOUNTER 2024-04-19 08:00 | Outpatient (RCR) | payer MEDICARE | END 2024-05-18 | disposition home or self-care (01) | LOC: PT | DX: M76.822 Posterior tibial tendinitis, left leg (principal); Q74.2 Other congenital malformations of lower limb(s), including pelvic girdle; M62.462 Contracture of muscle, left lower leg; G57.52 Tarsal tunnel syndrome, left lower limb; G57.61 Lesion of plantar nerve, right lower limb ==

== ENCOUNTER 2024-09-03 12:25 | Emergency (ER) | payer MEDICARE ==
[~2024-09-03] VITALS: Ht 157.5 cm; Wt 79.5 kg
[2024-09-03] MEDS ORDERED: MAGNESIUM250 M1 PO (12:57)
[2024-09-03] MEDS ORDERED: CITRACAL + D M1 EACH PO (12:58)
[2024-09-03 14:20] VITALS: BP 148/76
== END 2024-09-03 14:20 | disposition home or self-care (01) ==
LOC: ED 12:25
DX: I10 Essential (primary) hypertension (principal)

== ENCOUNTER → 2024-09-04 | Outpatient (CLI) | payer MEDICARE ==
[~2024-09-04] MED LIST changes: +APRESOLINE 10MG10 MG PO; +CITRACAL + D M1 EACH PO; +MAGNESIUM250 M1 PO
[2024-09-04 10:53] LABS: BASO # 0.02 K/mm3 (0.02-0.10); EOS # 0.03 K/mm3 (0.04-0.40); EOS % 0.5 % (1.0-5.0); HEMATOCRIT 45.1 % (37.0-47.0); HEMOGLOBIN 14.4 g/dL (12.5-16.0); LYMPH# 1.48 K/mm3 (1.50-4.00); MEAN CELL VOLUME 96 fl (78-100); MEAN CORPUSCULAR HEMOGLOBIN 31 pg (27-31); MEAN CORPUSCULAR HGB CONC 32 g/dL (33-37); MEAN PLATELET VOLUME 9.7 fl (7.4-10.4); MONO # 0.55 K/mm3 (0.20-0.80); NEU # 4.19 K/mm3 (1.40-6.50); PLATELET COUNT 322 K/mm3 (130-400); RED BLOOD COUNT 4.68 M/mm3 (4.10-5.30); WHITE BLOOD COUNT 6.3 K/mm3 (4.8-10.8)
[2024-09-04 10:55] LABS: ALBUMIN 4.6 g/dL (3.4-4.8)
[2024-09-04 10:56] LABS: CALCIUM 10.7 mg/dL (8.3-10.5)
[2024-09-04 10:57] LABS: TOTAL PROTEIN 8.2 g/dL (6.2-8.1)
[2024-09-04 10:59] LABS: TOTAL BILIRUBIN 0.6 mg/dL (0.2-1.2)
== END ==
LOC: LAB 10:30
PROVIDERS: Physician Assistant
DX: Z13.29 Encounter for screening for other suspected endocrine disorder (principal); I10 Essential (primary) hypertension; E78.5 Hyperlipidemia, unspecified; M10.9 Gout, unspecified; M81.0 Age-related osteoporosis without current pathological fracture; R73.03 Prediabetes

== ENCOUNTER 2024-09-09 11:13 | Emergency (ER) | payer MEDICARE ==
[~2024-09-09] VITALS: Ht 157.5 cm; Wt 77.3 kg
[~2024-09-09 11:13] MED LIST changes: -APRESOLINE 10MG10 MG PO
[2024-09-09 11:37] LABS: BASO # 0.02 K/mm3 (0.02-0.10); EOS # 0.04 K/mm3 (0.04-0.40); EOS % 0.6 % (1.0-5.0); HEMOGLOBIN 13.5 g/dL (12.5-16.0); LYMPH# 1.31 K/mm3 (1.50-4.00); MEAN CELL VOLUME 97 fl (78-100); MEAN CORPUSCULAR HEMOGLOBIN 31 pg (27-31); MEAN CORPUSCULAR HGB CONC 32 g/dL (33-37); MEAN PLATELET VOLUME 9.7 fl (7.4-10.4); MONO # 0.65 K/mm3 (0.20-0.80); NEU # 4.38 K/mm3 (1.40-6.50); PLATELET COUNT 279 K/mm3 (130-400); RED BLOOD COUNT 4.35 M/mm3 (4.10-5.30); RED CELL DISTRIBUTION WIDTH 12.7 % (11.5-14.5); WHITE BLOOD COUNT 6.4 K/mm3 (4.8-10.8)
[2024-09-09 11:42] LABS: SODIUM 139 mmol/L (136-145)
[2024-09-09 11:43] LABS: ALBUMIN 4.1 g/dL (3.4-4.8); CALCIUM 9.7 mg/dL (8.3-10.5)
[2024-09-09 11:45] LABS: TOTAL PROTEIN 7.2 g/dL (6.2-8.1)
[2024-09-09] MEDS ORDERED: Mag/Al Hydrox/Simeth Susp 30 ML CUP PO ONE (11:45)
[2024-09-09 11:46] LABS: CARBON DIOXIDE 21 mmol/L (23-31); GLUCOSE 114 mg/dL (65-105)
[2024-09-09 11:47] LABS: TOTAL BILIRUBIN 0.5 mg/dL (0.2-1.2)
[2024-09-09 11:50] LABS: AST-SGOT 17 U/L (5-34)
[2024-09-09 11:53] LABS: ALT/SGPT 16 U/L (0-55)
[2024-09-09 11:54] LABS: LIPASE 52 U/L (8-78)
[2024-09-09 12:05] LABS: TROPONIN-I < 0.030 ng/mL (0.00-0.033)
[2024-09-09] MEDS ORDERED: APRESOLINE 10MG10 MG PO (12:56)
[2024-09-09 13:13] VITALS: BP 186/89
== END 2024-09-09 13:13 | disposition home or self-care (01) ==
LOC: ED 11:13
PROVIDERS: Family Medicine
DX: R07.2 Precordial pain (principal); F41.9 Anxiety disorder, unspecified; I10 Essential (primary) hypertension; K30 Functional dyspepsia